=== PATIENT | male | born 1930 | race Caucasian/White ===

== ENCOUNTER 2017-02-24 10:51 | Outpatient (RCR) | payer MEDICARE ==
[~2017-02-24 10:51] MED LIST: APIX2.5T PO; CIP500 PO; DILT240C76 PO; DOC100 PO; DOCU-416 PO; DOXYZOSIN PO; FINA5TAB67 PO; HCTZ25 PO; IBU800 PO; LABE100T28 PO; LEVO-3 PO; LOR5/325 PO; PER PO; [UNRECOGNIZED DRUG - CODE] PO; [UNRECOGNIZED DRUG - OTHER] PO
[2017-02-24] MEDS ORDERED: APIX5TAB PO (13:42)
[2017-02-24] MEDS ORDERED: LEVO75TA73 PO (13:42)
== END 2017-04-21 13:43 | disposition home or self-care (01) ==
LOC: RAON 10:51
PROVIDERS: ATTEND Radiology Radiation Oncology
DX: Z86.39 Personal history of other endocrine, nutritional and metabolic disease (principal); E05.00 Thyrotoxicosis with diffuse goiter without thyrotoxic crisis or storm; I48.91 Unspecified atrial fibrillation; Z79.899 Other long term (current) drug therapy
CPT/HCPCS: 99212

== ENCOUNTER → 2017-04-14 | Outpatient (CLI) | payer MEDICARE ==
[~2017-04-14] MED LIST changes: +APIX5TAB PO; +LEVO75TA73 PO
== END ==
LOC: LAB 13:59
PROVIDERS: ATTEND Radiology Radiation Oncology
DX: E03.9 Hypothyroidism, unspecified (principal)
CPT/HCPCS: 36415; 84436; 84443

== ENCOUNTER → 2017-06-12 | Outpatient (CLI) | payer MEDICARE ==
--- NOTE | 2017-06-15 12:25 | RADIOLOGY IMAGING REPORT ---
FACILITY: [facility] - [place] PATIENT NAME: STEPHAN DOVE : [id number] MR: [id number] V: [id number] EXAM DATE: ORDERING PHYSICIAN: MELISSA TREVIÑO TECHNOLOGIST: Casandra Robles EXAMINATION:TWO-DIMENSIONAL ECHOCARDIOGRAPH REASON:CARDIOMYOPATHY 2D Measurements (normal values in centimeters) LV endLV endRV endVent.LV PostAorticLeftPercent DiastolicSystolicDiastolicSeptumWallRootAtriumShortening (3.5-5.7)(0.9-2.6)(0.6-1.1)(0.6-1.1)(2.0-3.7)(1.9-4.0)(25-35%) [id number]% STROKE VOLUME: 34ml ESTIMATED EJECTION FRACTION:46% PARASTERNAL LONG AXIS: Left ventricular systolic function appears to be somewhat decreased with generalized hypokinesis. The view is very technically difficult. Mild aortic sclerosis is noted. Color examination revealed a mild amount of mitral insufficiency. PARASTERNAL SHORT AXIS: Overall left ventricular function again appears to be borderline decreased. Some generalized hypokinesis but no akinesis was noted. Aortic valve is trileaflet in configuration with some aortic sclerosis but no stenosis. Color examination of the valves revealed a mild amount of mitral & tricuspid insufficiency & some aortic insufficiency as well as a mild amount of pulmonic insufficiency present. APICAL FOUR AND TWO CHAMBER: Left ventricular function again appears to be mildly decreased. Some aortic insufficiency is noted. The aortic valve area was measured within normal ranges at 2.7cm2. Mitral valve area was not able to be accurately measured but it does appear to open normally. Patient appears to be in sinus rhythm with occasional premature ventricular contractions. Left atrial & right atrial volumes measure within normal ranges at 26 & 21ml/m2. The tricuspid regurgitation Vmax measured 2.33m/sec. Estimated right atrial pressure was 3mm Hg. SUBCOSTAL VIEW: No pericardial effusion was noted. No atrioseptal or ventriculoseptal defects were appreciated. Mild left ventricular thickening is noted more along the interventricular septum but no evidence for any outflow tract obstruction. Aortic insufficiency pressure half time was measured at 527msec down to 382msec. Doppler examination of the mitral valve in diastole does reveal the A wave > E wave. OVERALL IMPRESSION: 1. Mildly decreased left ventricular ejection fraction measured at 46% with generalized hypokinesis. No areas of akinesis was noted but the view was somewhat technically difficult. 2. A Grade 1/4 decrease in diastolic function. 3. Patient is in sinus rhythm with occasional premature atrial & ventricular contractions. 4. Mild right ventricular enlargement with the other chamber sizes being normal. 5. There is mild left ventricular thickening more along the interventricular septum but no evidence for any outflow tract obstruction. 6. A trileaflet aortic valve with mild aortic sclerosis but no stenosis. 7. A mild to moderate amount of aortic insufficiency. 8. A mild amount of mitral, tricuspid & pulmonic insufficiency with estimated right ventricular systolic pressure within normal ranges at 25mm Hg. Dictated by: Morro Keller M.D. on 06/15/2017 at 8:40 Transcribed by: ZOE on 06/15/2017 at 10:17 Approved by: Morro Keller M.D. on 06/15/2017 at 12:24 [facility]
== END ==
LOC: US 01:21
PROVIDERS: ATTEND Internal Medicine Clinical Cardiac Electrophysiology
DX: Q21.0 Ventricular septal defect (principal); I50.30 Unspecified diastolic (congestive) heart failure; I49.1 Atrial premature depolarization; I49.3 Ventricular premature depolarization; I51.7 Cardiomegaly; I25.10 Atherosclerotic heart disease of native coronary artery without angina pectoris; I35.1 Nonrheumatic aortic (valve) insufficiency; I34.0 Nonrheumatic mitral (valve) insufficiency; I07.1 Rheumatic tricuspid insufficiency; I37.1 Nonrheumatic pulmonary valve insufficiency
CPT/HCPCS: 93306

== ENCOUNTER → 2017-10-20 | Outpatient (CLI) | payer MEDICARE ==
[~2017-10-20] MED LIST changes: +LABE100T2 PO; -LABE100T28 PO
== END ==
LOC: US 01:45
PROVIDERS: ATTEND Internal Medicine Cardiovascular Disease
DX: I42.0 Dilated cardiomyopathy (principal)
CPT/HCPCS: 93306

== ENCOUNTER 2017-12-14 18:01 | Emergency (ER) | payer MEDICARE ==
[2017-12-14] MEDS ORDERED: LOSA-54 PO (18:07)
[2017-12-14] MEDS ORDERED: FINA5TAB67 PO (18:07)
[2017-12-14] MEDS ORDERED: AMLO-111 PO (18:07)
--- NOTE | 2017-12-14 18:16 | ER Report ---
History and Physical Time Seen By MD: 18:10 Hx. of Stated Complaint: HIT IN LEFT CHEEK WITH CHAIN HPI/ROS CHIEF COMPLAINT: Right cheek laceration HISTORY OF PRESENT ILLNESS: This is a 87-year-old male. There were pulling posts, with a chain hooked to the post. The chain broke and hit him in the right cheek. Laceration that is bleeding heavily. He did not lose consciousness. He does have tenderness all around this area. Vision is otherwise normal. He has no other complaints. No other injuries. Allergies: Coded Allergies: No Known Drug Allergies (Unverified , 02/02/17) Home Meds Active Scripts Amoxicillin/Pot Clav 875-125 Mg Tab (AUGMENTIN 875-125 TABLET) 1 Each Tablet, 1 TAB PO Q12H, #20 TAB 0 Refills Prov:CHARLETTE MARQUEZ MD 12/14/17 Reported Medications Losartan/Hydrochlorothiazide (LOSARTAN-HCTZ 100-25 MG TAB) 1 Each Tablet, 1 EACH PO QDAY 12/14/17 Amlodipine Besylate (AMLODIPINE BESYLATE) 5 Mg Tablet, 1 TAB PO QDAY, TAB 12/14/17 Finasteride (FINASTERIDE) 5 Mg Tablet, 5 MG PO QDAY 12/14/17 Levothyroxine Sodium (LEVOTHYROXINE SODIUM) 75 Mcg Tablet, 137 MCG PO QDAY, TAB 02/24/17 Discontinued Reported Medications Apixaban (ELIQUIS) 5 Mg Tablet, 5 MG PO QODAY 02/24/17 Finasteride (FINASTERIDE) 5 Mg Tablet, 2.5 TAB PO DAILY, #90 02/04/16 Diltiazem Hcl (DILTIAZEM ER) 420 Mg Capsule.er, 1 TAB PO DAILY, #90 02/04/16 Reviewed Nurses Notes: Yes Hx Substance Use Disorder: No Hx Alcohol Use: No Constitutional Vital Sign - Last 24 Hours 12/14/17 12/14/17 12/14/17 12/14/17 18:07 20:00 20:30 21:00 Temp 98.2 Pulse 72 68 68 69 Resp 18 B/P (MAP) 199/128 163/96 (118) 148/81 (103) 150/90 (110) Pulse Ox 96 92 92 94 O2 Delivery Room Air Room Air Room Air Room Air 12/14/17 21:30 Pulse 72 B/P (MAP) 182/104 (130) Pulse Ox 94 O2 Delivery Room Air Physical Exam General Appearance: Alert, no acute distress. Eyes: Pupils equal and round no injection. ENT: Normal oral mucosa. Moist mucous membranes. No nosebleed. Neck: Neck is supple and non tender. Respiratory: Breathing easily. Cardiac: regular rate and rhythm Musculoskeletal: Pain over the zygoma no other musculoskeletal pain noted. Skin: Laceration right cheek that is deep but with significant bleeding. DIFFERENTIAL DIAGNOSIS: After history and physical exam differential diagnosis was considered for blow to the face with laceration that is bleeding and needs repair. He will need a tetanus shot. We will also get a CT scan of the facial bones. Medical Decision Making EKG/Imaging Imaging EXAMINATION: CT facial bones without IV contrast HISTORY: Hit in right cheek with chain. COMPARISON: None. TECHNIQUE: Axial images were obtained from the superior aspect of the orbits through the inferior aspect of mandible. Coronal and sagittal reformatted images were obtained from the axial source data. No IV contrast was administered. One of the following dose optimization techniques was utilized in the performance of this exam: Automated exposure control; adjustment of the mA and/or kV according to the patient's size; or use of an iterative reconstruction technique. Specific details can be referenced in the facility's radiology CT exam operational policy. FINDINGS: Soft Tissues: Subcutaneous soft tissue swelling and small subcutaneous hematoma in the right cheek overlying the right zygoma with mild soft tissue swelling inferiorly in the right cheek. There are pockets of air in the soft tissues of the right cheek in the region of soft tissue swelling. 3 mm metallic foreign body in the soft tissues of the chin to the left of midline. Mandible / TMJ: Negative. Maxillae / pterygoid plates: No acute fracture. Mild bone loss about the roots of the right first maxillary molar. Zygoma / zygomatic arches: Negative. Orbits: No acute fracture. The lenses have been extracted or replaced. Nasal bones / nasal septum: Negative. Frontal bones: Negative. Sinuses: Trace mucosal thickening in the right maxillary sinus. Visualized brain: Mild generalized cerebral atrophy. Other findings: Multilevel disc and facet degenerative changes in the visible upper cervical spine calcified plaque of the carotid arteries and distal vertebral arteries. IMPRESSION: Subcutaneous soft tissue swelling along the right cheek with small subcutaneous hematoma and a small amount of air in the soft tissues. No evidence of acute facial bone fracture. Report Dictated By: Glenn Morales MD at 12/14/2017 8:45 PM ED Course/Re-evaluation ED Course Procedure: Laceration Repair Verbal consent from patient after discussing repair options, risks and benefits. Wound cleaned extensively with Hibiclens and saline. Anesthesia: Local 1% lidocaine with epinephrine and 0.5% bupivacaine. Location: Right cheek over the zygomatic arch. Length: Approximately 2 cm. Character: Deep below the subcutaneous tissue. Brisk venous bleeding but no arterial bleeding noted.. Wound repair: 2 interrupted 4-0 Vicryl sutures and 4 interrupted 5-0 Prolene sutures.. The wound repair was intermediate and performed by myself. Wound care instructions discussed. Sutures need to be removed in 7 days. Tetanus booster given. Augmentin 875/125 twice a day for 10 days. Decision to Disposition Date: Dec 14, 2017 Decision to Disposition Time: 21:33 Depart Departure Latest Vital Signs Vital Signs Date Time Temp Pulse Resp B/P (MAP) Pulse Ox O2 Delivery O2 Flow Rate FiO2 12/14/17 21:30 72 182/104 (130) 94 Room Air 12/14/17 18:07 98.2 18 Impression: Primary Impression: Facial laceration Condition: Improved Disposition: HOME OR SELF-CARE New Scripts Amoxicillin/Pot Clav 875-125 Mg Tab (AUGMENTIN 875-125 TABLET) 1 Each Tablet 1 TAB PO Q12H, #20 TAB 0 Refills Prov: CHARLETTE MARQUEZ MD 12/14/17 Patient Instructions: Facial Laceration (ED) Additional Instructions: Augmentin 875/125 twice a day for 10 days. Wound Care: Wash the wound once a day with soap and water. Dry the wound and apply a small amount of antibiotic ointment with a clean dressing. If the dressing becomes wet or dirty, repeat cleaning and dressing as above. No soaking the wound; no swimming. Stitches need to be removed in 5-7 days. Pain Control: Use Tylenol or ibuprofen for pain. Using and ice pack can help reduce swelling. Problem Qualifiers Primary Impression: Facial laceration Encounter type: initial encounter Qualified Codes: S01.81XA - Laceration without foreign body of other part of head, initial encounter CHARLETTE MARQUEZ MD Dec 14, 2017 18:16
[2017-12-14] MEDS ORDERED: DIPHTH/TETANUS/ACEL. PERTUSSIS IM ONLY ONE (18:25)
--- NOTE | 2017-12-14 20:58 | RADIOLOGY IMAGING REPORT ---
FACILITY: [facility] PATIENT NAME: Hardy Sanchez : 1930 MR: [id number] V: [id number] EXAM DATE: ORDERING PHYSICIAN: CHARLETTE MARQUEZ TECHNOLOGIST: Location: [facility] [place] Patient: Hardy Sanchez : 1930 Visit/Account:[id number] Date of Sevice: 12/14/2017 EXAMINATION: CT facial bones without IV contrast HISTORY: Hit in right cheek with chain. COMPARISON: None. TECHNIQUE: Axial images were obtained from the superior aspect of the orbits through the inferior as pect of mandible. Coronal and sagittal reformatted images were obtained from the axial source data. N o IV contrast was administered. One of the following dose optimization techniques was utilized in the performance of this exam: Autom ated exposure control; adjustment of the mA and/or kV according to the patient's size; or use of an i terative reconstruction technique. Specific details can be referenced in the facility's radiology C T exam operational policy. FINDINGS: Soft Tissues: Subcutaneous soft tissue swelling and small subcutaneous hematoma in the right cheek ov erlying the right zygoma with mild soft tissue swelling inferiorly in the right cheek. There are pock ets of air in the soft tissues of the right cheek in the region of soft tissue swelling. 3 mm metalli c foreign body in the soft tissues of the chin to the left of midline. Mandible / TMJ: Negative. Maxillae / pterygoid plates: No acute fracture. Mild bone loss about the roots of the right first max illary molar. Zygoma / zygomatic arches: Negative. Orbits: No acute fracture. The lenses have been extracted or replaced. Nasal bones / nasal septum: Negative. Frontal bones: Negative. Sinuses: Trace mucosal thickening in the right maxillary sinus. Visualized brain: Mild generalized cerebral atrophy. Other findings: Multilevel disc and facet degenerative changes in the visible upper cervical spine ca lcified plaque of the carotid arteries and distal vertebral arteries. IMPRESSION: Subcutaneous soft tissue swelling along the right cheek with small subcutaneous hematoma and a small amount of air in the soft tissues. No evidence of acute facial bone fracture. Report Dictated By: Glenn Morales MD at 12/14/2017 8:45 PM Report E-Signed By: Glenn Morales MD at 12/14/2017 8:54 PM WSN:[id number]
[2017-12-14 21:30] VITALS: BP 182/104
[2017-12-14] MEDS ORDERED: AMOX/CLAV 875 MG TAB PO ONE ×2 (21:35→22:00)
[2017-12-14] MEDS ORDERED: AMOX-559 PO (21:37)
== END 2017-12-14 21:53 | disposition home or self-care (01) ==
LOC: ER 18:23
DX: S01.411A Laceration without foreign body of right cheek and temporomandibular area, initial encounter (principal); W20.8XXA Other cause of strike by thrown, projected or falling object, initial encounter
CPT/HCPCS: 12051; 70486; 90471; 90715; 99284; A9270